=== PATIENT | male | born 1960 | race Caucasian/White ===

== ENCOUNTER 2020-08-03 09:31 | Outpatient (CLI) | payer MEDICARE, SELFPAY ==
[2020-08-03 18:07] LABS: Hemoglobin 16.6 g/dL (14.0-18.0); Mean Corpuscular HGB Conc 34.6 g/dl (32-36); Mean Corpuscular Hemoglobin 31.7 pg (26-34); Mean Corpuscular Volume 91.8 fl (80-100); Mean Platelet Volume 9.5 fl (7.4-10.4); Platelet Count Result 293 k/mm3 (150-375); Red Blood Count 5.23 M/mm3 (4.6-6.20); Red Cell Distribution Width 13.5 % (11.5-14.5); White Blood Count 10.1 K/mm3 (4.5-10.0)
== END 2020-08-03 09:32 | disposition home or self-care (01) ==
LOC: ANHBWCLAB 09:33
PROVIDERS: PCP Family Medicine; Visit Provider Family Medicine
DX: L40.50 Arthropathic psoriasis, unspecified (principal)
CPT/HCPCS: 36415; 85027

== ENCOUNTER 2020-08-18 11:26 | Outpatient (CLI) | payer MEDICARE, SELFPAY ==
[2020-08-18 19:50] LABS: Add Urine Microscopic? NO; Appearance Urine Clear (Clear); Bilirubin Urine Negative (Negative); Blood Urine Negative (Negative); Color Urine Straw (Yellow); Glucose Urine UA Negative (Negative); Ketones Urine Negative (Negative); Leukocyte Esterase Ur Negative LEU/UL (Negative); Nitrate Urine Negative (Negative); Protein Urine Negative (Negative); Specific Grav Ur 1.006 (1.001-1.035); Urobilinogen Urine Negative mg/dL (<2.0)
== END 2020-08-18 11:27 | disposition home or self-care (01) ==
LOC: ANHBWCLAB 11:30
PROVIDERS: PCP Family Medicine; Visit Provider Family Medicine
DX: Z51.81 Encounter for therapeutic drug level monitoring (principal); Z79.899 Other long term (current) drug therapy
CPT/HCPCS: 81003

== ENCOUNTER 2020-11-03 10:49 | Outpatient (CLI) | payer MEDICARE, SELFPAY ==
[2020-11-03 18:37] LABS: Add Urine Microscopic? YES; Appearance Urine Clear (Clear); Bilirubin Urine Negative (Negative); Blood Urine Negative (Negative); Color Urine Straw (Yellow); Glucose Urine UA Negative (Negative); Ketones Urine Negative (Negative); Leukocyte Esterase Ur Trace LEU/UL (NEGATIVE); Nitrate Urine Negative (Negative); Protein Urine Negative (Negative); RBC Urine 0-2 /hpf (0-2); Specific Grav Ur 1.005 (1.001-1.035); Urobilinogen Urine Negative mg/dL (<2.0); WBC Urine 0-3 /hpf (0-3)
[2020-11-03 19:15] LABS: Prostate Specific Antigen 0.5 ng/mL (< OR = 4.0)
== END 2020-11-03 10:50 | disposition home or self-care (01) ==
PROVIDERS: PCP Family Medicine; Visit Provider Family Medicine
DX: Z12.5 Encounter for screening for malignant neoplasm of prostate (principal); R30.0 Dysuria; I10 Essential (primary) hypertension
CPT/HCPCS: 36415; 81001; 84153; 87086; G0103

== ENCOUNTER 2021-02-24 09:14 | Outpatient (CLI) | payer MEDICARE, SELFPAY ==
[2021-02-24 19:05] LABS: Basophils Absolute Auto 0.1 K/mm3 (0.0-0.1); Basophils Percent Auto 0.5 % (0.2-1.2); Eosinophils Absolute Auto 0.3 K/mm3 (0-0.3); Eosinophils Percent Auto 2.6 % (0-4.4); Hematocrit 46.2 % (42.0-52.0); Hemoglobin 14.9 g/dL (14.0-18.0); Immature Granulocyte Absolute 0.05 K/mm3 (0.00-0.031); Immature Granulocyte Percent A 0.4 % (0-0.5); Lymphocytes Absolute Auto 3.57 K/mm3 (0.9-3.2); Lymphocytes Percent Auto 31.9 % (18.3-44.2); Mean Corpuscular HGB Conc 32.3 g/dl (32-36); Mean Corpuscular Hemoglobin 31.6 pg (26-34); Mean Corpuscular Volume 98.1 fl (80-100); Monocytes Percent Auto 9.1 % (2.6-8.5); Neutrophils Absolute Auto 6.2 K/mm3 (1.3-6.7); Neutrophils Percent Auto 55.5 % (45.5-73.1); Platelet Count Result 290 k/mm3 (150-375); Red Blood Count 4.71 M/mm3 (4.6-6.20); Red Cell Distribution Width 13.9 % (11.5-14.5); White Blood Count 11.2 K/mm3 (4.5-10.0)
[2021-02-24 19:07] LABS: Add Urine Microscopic? NO; Appearance Urine Clear (Clear); Bilirubin Urine Negative (Negative); Blood Urine Negative (Negative); Color Urine Straw (Yellow); Glucose Urine UA Negative (Negative); Ketones Urine Negative (Negative); Leukocyte Esterase Ur Negative LEU/UL (Negative); Nitrate Urine Negative (Negative); Protein Urine Negative (Negative); Urobilinogen Urine Negative mg/dL (<2.0)
[2021-02-24 19:08] LABS: Alanine Aminotransferase 49 U/L (4-50); Alkaline Phosphatase 89 U/L (38-126); Anion Gap 7 mmol/L (8-16); Aspartate Amino Transferase 52 U/L (17-59); Bilirubin,Total 0.5 mg/dL (0.2-1.3); Blood Urea Nitrogen 7 mg/dL (9-20); Calcium 9.3 mg/dL (8.4-10.2); Carbon Dioxide 30 mmol/L (22-30); Chloride 93 mmol/L (98-107); Cholesterol 176 mg/dL (0-200); Estimated Glomerular Filt Rate > 60; Glucose 94 mg/dL (65-110); HDL Direct 72 mg/dL; Potassium 4.5 mmol/L (3.4-5.0); Sodium 130 mmol/L (137-145); Triglycerides 149 mg/dL (<150)
[2021-02-24 19:19] LABS: LDL Cholesterol Direct 74 mg/dL
[2021-02-24 19:24] LABS: Vitamin D 25 Hydroxy 77.4 ng/mL
[2021-02-24 19:28] LABS: Specific Grav Ur 1.004 (1.001-1.035)
[2021-02-24 20:14] LABS: Folic Acid 5.6 ng/mL (2.76->20)
== END 2021-02-24 09:15 | disposition home or self-care (01) ==
PROVIDERS: PCP Family Medicine; Visit Provider Family Medicine
DX: R79.89 Other specified abnormal findings of blood chemistry (principal); D72.829 Elevated white blood cell count, unspecified; I10 Essential (primary) hypertension; F17.200 Nicotine dependence, unspecified, uncomplicated; L40.50 Arthropathic psoriasis, unspecified; R30.0 Dysuria; Z79.899 Other long term (current) drug therapy; D75.1 Secondary polycythemia; Z12.5 Encounter for screening for malignant neoplasm of prostate
CPT/HCPCS: 36415; 80053; 80061; 81003; 82306; 82607; 82746; 84443; 85025

== ENCOUNTER 2021-06-24 11:28 | Outpatient (CLI) | payer MEDICARE, SELFPAY ==
[2021-06-24 20:19] LABS: Basophils Absolute Auto 0.1 K/mm3 (0.0-0.1); Basophils Percent Auto 0.6 % (0.2-1.2); Eosinophils Absolute Auto 0.2 K/mm3 (0-0.3); Eosinophils Percent Auto 1.9 % (0-4.4); Hematocrit 46.9 % (42.0-52.0); Hemoglobin 15.9 g/dL (14.0-18.0); Immature Granulocyte Absolute 0.05 K/mm3 (0.00-0.031); Immature Granulocyte Percent A 0.5 % (0-0.5); Lymphocytes Absolute Auto 2.98 K/mm3 (0.9-3.2); Lymphocytes Percent Auto 31.3 % (18.3-44.2); Mean Corpuscular HGB Conc 33.9 g/dl (32-36); Mean Corpuscular Hemoglobin 33.3 pg (26-34); Mean Corpuscular Volume 98.3 fl (80-100); Monocytes Absolute Auto 0.8 K/mm3 (0.1-0.6); Monocytes Percent Auto 8.2 % (2.6-8.5); Neutrophils Absolute Auto 5.5 K/mm3 (1.3-6.7); Neutrophils Percent Auto 57.5 % (45.5-73.1); Platelet Count Result 345 k/mm3 (150-375); Red Blood Count 4.77 M/mm3 (4.6-6.20); Red Cell Distribution Width 12.8 % (11.5-14.5); White Blood Count 9.5 K/mm3 (4.5-10.0)
[2021-06-24 20:20] LABS: Anion Gap 9 mmol/L (8-16); Blood Urea Nitrogen 5 mg/dL (9-20); Calcium 9.1 mg/dL (8.4-10.2); Carbon Dioxide 27 mmol/L (22-30); Chloride 94 mmol/L (98-107); Estimated Glomerular Filt Rate > 60; Glucose 92 mg/dL (65-110); Potassium 4.4 mmol/L (3.4-5.0); Sodium 130 mmol/L (137-145)
[2021-06-24 20:51] LABS: Prostate Specific Antigen 0.5 ng/mL (< OR = 4.0)
[2021-06-24 22:35] LABS: Free T4 Free Thyroxine Reflex 1.32 ng/dL (0.78-2.19)
[2021-06-25 07:23] LABS: Total Triiodothyronine (T3) 1.21 NG/ML (0.97-1.69)
[2021-06-29 02:40] LABS: Thyroid Peroxidase Antibodies <1 IU/mL (<9)
== END 2021-06-24 11:29 | disposition home or self-care (01) ==
PROVIDERS: PCP Family Medicine; Visit Provider Family Medicine
DX: Z12.5 Encounter for screening for malignant neoplasm of prostate (principal); R79.89 Other specified abnormal findings of blood chemistry; E87.1 Hypo-osmolality and hyponatremia; D72.829 Elevated white blood cell count, unspecified; Z00.00 Encounter for general adult medical examination without abnormal findings
CPT/HCPCS: 36415; 80048; 84153; 84439; 84443; 84480; 85025; 86376; G0103

== ENCOUNTER 2021-07-01 08:41 | Outpatient (CLI) | payer MEDICARE, SELFPAY ==
[2021-07-01 19:17] LABS: Sodium Urine Random < 5 meq/L
[2021-07-01 21:17] LABS: Cortisol Baseline 6.87 ug/dL
[2021-07-04 07:19] LABS: Osmolality, Urine 127 mOsm/kg (50-1200)
== END 2021-07-01 08:42 | disposition home or self-care (01) ==
PROVIDERS: PCP Family Medicine; Visit Provider Family Medicine
DX: E87.1 Hypo-osmolality and hyponatremia (principal)
CPT/HCPCS: 36415; 82533; 83930; 83935; 84300

== ENCOUNTER 2021-10-11 09:37 | Outpatient (CLI) | payer MEDICARE, SELFPAY ==
[2021-10-11 19:10] LABS: Anion Gap 5 mmol/L (8-16); Blood Urea Nitrogen 5 mg/dL (9-20); Calcium 8.8 mg/dL (8.4-10.2); Carbon Dioxide 32 mmol/L (22-30); Chloride 96 mmol/L (98-107); Estimated Glomerular Filt Rate > 60; Glucose 85 mg/dL (65-110); Potassium 4.8 mmol/L (3.4-5.0); Sodium 133 mmol/L (137-145)
== END 2021-10-11 09:38 | disposition home or self-care (01) ==
PROVIDERS: PCP Family Medicine; Visit Provider Family Medicine
DX: E87.1 Hypo-osmolality and hyponatremia (principal)
CPT/HCPCS: 36415; 80048

== ENCOUNTER 2021-10-26 11:27 | Outpatient (CLI) | payer MEDICARE, SELFPAY ==
[2021-10-26 11:59] LABS: Alanine Aminotransferase 17 U/L (4-50); Aspartate Amino Transferase 29 U/L (17-59)
== END 2021-10-26 11:28 | disposition home or self-care (01) ==
PROVIDERS: PCP Family Medicine; Visit Provider Podiatrist Foot & Ankle Surgery
DX: B35.1 Tinea unguium (principal)
CPT/HCPCS: 36415; 84450; 84460

== ENCOUNTER 2021-11-16 11:46 | Outpatient (CLI) | payer MEDICARE, SELFPAY ==
--- NOTE | ~2021-11-16 | XR_ITS ---
EXAMINATION:XR cervical spine 4-5V DATE: 11/16/2021 12:35 INDICATION: Neck pain TECHNIQUE: AP, lateral, lateral swimmers and odontoid views of the cervical spine are provided. COMPARISON: 08/14/2015 FINDINGS: There are 2 mm of retrolisthesis of C5 on C6. There is mild loss of intervertebral disc spa ce height at C5-6 and moderate loss of intervertebral disc space height at C6-7. The odontoid is inta ct. No fracture is identified. Vertebral body heights are maintained. Prevertebral soft tissues are n ormal. IMPRESSION: 1. Moderate cervical spondylosis with slight worsening. Reviewed, dictated and finalized at location F.
--- NOTE | ~2021-11-16 | XR_ITS ---
EXAMINATION: XR shoulder RT min 2V DATE: 11/16/2021 12:34 INDICATION: Right shoulder pain TECHNIQUE: AP internally and externally rotated, AP oblique externally rotated and transscapular Y vi ews of the right shoulder were obtained. COMPARISON: None FINDINGS: Normal alignment. No fracture. Mild glenohumeral and acromioclavicular osteoarthritis. Soft tissues are unremarkable. Visualized portion of the right lung is clear. IMPRESSION: Mild right glenohumeral and acromioclavicular osteoarthritis. Reviewed, dictated and finalized at location B.
[2021-11-16 19:10] LABS: Hematocrit 49.6 % (42.0-52.0); Hemoglobin 16.6 g/dL (14.0-18.0); Mean Corpuscular HGB Conc 33.5 g/dl (32-36); Mean Corpuscular Hemoglobin 31.9 pg (26-34); Mean Corpuscular Volume 95.4 fl (80-100); Platelet Count Result 365 k/mm3 (150-375); Red Cell Distribution Width 13.1 % (11.5-14.5); White Blood Count 11.7 K/mm3 (4.5-10.0)
[2021-11-16 19:17] LABS: Iron 137 ug/dL (49-181)
[2021-11-16 19:19] LABS: Alanine Aminotransferase 24 U/L (4-50); Albumin Level 4.4 g/dL (3.5-5.1); Alkaline Phosphatase 90 U/L (38-126); Anion Gap 5 mmol/L (8-16); Aspartate Amino Transferase 32 U/L (17-59); Bilirubin,Total 0.4 mg/dL (0.2-1.3); Blood Urea Nitrogen 7 mg/dL (9-20); Calcium 9.4 mg/dL (8.4-10.2); Carbon Dioxide 34 mmol/L (22-30); Chloride 90 mmol/L (98-107); Estimated Glomerular Filt Rate > 60; Glucose 85 mg/dL (65-110); Potassium 4.6 mmol/L (3.4-5.0); Sodium 129 mmol/L (137-145)
[2021-11-16 19:26] LABS: Percent Iron Saturation 41 % (20-50)
[2021-11-16 19:37] LABS: Vitamin D 25 Hydroxy 72.1 ng/mL
[2021-11-19 08:29] LABS: ANA Cascade Screen Negative (Negative)
== END 2021-11-16 11:47 | disposition home or self-care (01) ==
PROVIDERS: PCP Family Medicine; Visit Provider Family Medicine
DX: M47.812 Spondylosis without myelopathy or radiculopathy, cervical region (principal); R79.89 Other specified abnormal findings of blood chemistry; G25.81 Restless legs syndrome; M25.511 Pain in right shoulder; E55.9 Vitamin D deficiency, unspecified; M19.011 Primary osteoarthritis, right shoulder
CPT/HCPCS: 36415; 72050; 73030; 80053; 82306; 82607; 83540; 83550; 85027; 86038

== ENCOUNTER 2022-02-08 08:26 | Outpatient (CLI) | payer MEDICARE, SELFPAY ==
--- NOTE | ~2022-02-08 | XR_ITS ---
XR wrist RT min 3V DATE: 02/08/2022 08:46 INDICATION: Wrist pain TECHNIQUE: 4 views COMPARISON: None FINDINGS: No fracture or dislocation, periosteal reaction or bone destruction. No erosive change or c hondrocalcinosis. Joint spaces are relatively well preserved. IMPRESSION: No significant abnormality Reviewed, dictated and finalized at location B. IMPRESSION: No significant abnormality
--- NOTE | ~2022-02-08 | XR_ITS ---
XR elbow RT min 3V DATE: 02/08/2022 08:46 INDICATION: Pain TECHNIQUE: 4 views COMPARISON: None FINDINGS: No fracture or dislocation or joint effusion. No periosteal reaction or bone destruction. IMPRESSION: No significant abnormality Reviewed, dictated and finalized at location B. IMPRESSION: No significant abnormality
[2022-02-08 18:46] LABS: Anion Gap 5 mmol/L (8-16); Blood Urea Nitrogen 4 mg/dL (9-20); Calcium 9.1 mg/dL (8.4-10.2); Carbon Dioxide 33 mmol/L (22-30); Chloride 98 mmol/L (98-107); Estimated Glomerular Filt Rate > 60; Glucose 95 mg/dL (65-110); Potassium 4.1 mmol/L (3.4-5.0); Sodium 136 mmol/L (137-145)
== END 2022-02-08 08:27 | disposition home or self-care (01) ==
PROVIDERS: PCP Family Medicine; Visit Provider Family Medicine
DX: E87.1 Hypo-osmolality and hyponatremia (principal); M25.539 Pain in unspecified wrist; M25.529 Pain in unspecified elbow
CPT/HCPCS: 36415; 73080; 73110; 80048

== ENCOUNTER 2022-02-23 11:03 | Outpatient (CLI) | payer MEDICARE, SELFPAY ==
[2022-02-23 20:53] LABS: Appearance Urine Clear (Clear); Bilirubin Urine Negative (Negative); Glucose Urine UA Negative (Negative); Ketones Urine Negative (Negative); Leukocyte Esterase Ur Negative LEU/UL (NEGATIVE); Nitrate Urine Negative (Negative); Protein Urine Negative (Negative); Urobilinogen Urine 0.2 mg/dL (<2.0)
[2022-02-23 21:02] LABS: Add Urine Microscopic? YES; Blood Urine Trace-Intact (Negative); Color Urine Light Yellow (Yellow)
[2022-02-23 21:06] LABS: Bacteria Urine Trace /hpf; Squamous Epithelial Cell Urine Rare /hpf (Few); WBC Urine 0-3 /hpf (0-3)
[2022-02-23 21:48] LABS: Cholesterol 184 mg/dL (0-200); HDL Direct 52 mg/dL; Triglycerides 120 mg/dL (<150)
[2022-02-23 21:59] LABS: LDL Cholesterol Direct 89 mg/dL
== END 2022-02-23 11:04 | disposition home or self-care (01) ==
PROVIDERS: PCP Family Medicine; Visit Provider Family Medicine
DX: E78.5 Hyperlipidemia, unspecified (principal); N50.89 Other specified disorders of the male genital organs; N50.819 Testicular pain, unspecified
CPT/HCPCS: 36415; 80061; 81001

== ENCOUNTER 2022-06-14 08:36 | Outpatient (CLI) | payer MEDICARE, SELFPAY ==
[2022-06-14 19:41] LABS: Appearance Urine Clear (Clear); Basophils Absolute Auto 0.1 K/mm3 (0.0-0.1); Basophils Percent Auto 0.8 % (0.2-1.2); Bilirubin Urine Negative (Negative); Blood Urine Negative (Negative); Color Urine Yellow (Yellow); Eosinophils Absolute Auto 0.2 K/mm3 (0-0.3); Glucose Urine UA Negative (Negative); Hematocrit 51.7 % (42.0-52.0); Hemoglobin 16.7 g/dL (14.0-18.0); Immature Granulocyte Absolute 0.06 K/mm3 (0.00-0.031); Immature Granulocyte Percent A 0.5 % (0-0.5); Ketones Urine Negative (Negative); Leukocyte Esterase Ur Negative LEU/UL (NEGATIVE); Lymphocytes Absolute Auto 4.47 K/mm3 (0.9-3.2); Lymphocytes Percent Auto 37.4 % (18.3-44.2); Mean Corpuscular HGB Conc 32.3 g/dl (32-36); Mean Corpuscular Hemoglobin 30.6 pg (26-34); Mean Corpuscular Volume 94.7 fl (80-100); Mean Platelet Volume 9.4 fl (7.4-10.4); Monocytes Absolute Auto 0.9 K/mm3 (0.1-0.6); Monocytes Percent Auto 7.8 % (2.6-8.5); Neutrophils Absolute Auto 6.2 K/mm3 (1.3-6.7); Neutrophils Percent Auto 51.5 % (45.5-73.1); Nitrate Urine Negative (Negative); Platelet Count Result 396 k/mm3 (150-375); Protein Urine Negative (Negative); Red Blood Count 5.46 M/mm3 (4.6-6.20); Red Cell Distribution Width 14.1 % (11.5-14.5); Specific Grav Ur <= 1.005 (1.001-1.035); Urobilinogen Urine 0.2 mg/dL (<2.0); White Blood Count 11.9 K/mm3 (4.5-10.0)
[2022-06-14 19:48] LABS: RBC Urine 0-2 /hpf (0-2); Squamous Epithelial Cell Urine Rare /hpf (Few); WBC Urine 0-3 /hpf (0-3)
[2022-06-14 19:54] LABS: Add Urine Microscopic? NO
[2022-06-14 20:42] LABS: Prostate Specific Antigen 0.4 ng/mL (< OR = 4.0)
[2022-06-14 20:56] LABS: Anion Gap 15 mmol/L (8-16); Blood Urea Nitrogen 7 mg/dL (9-20); Calcium 8.9 mg/dL (8.4-10.2); Carbon Dioxide 27 mmol/L (22-30); Chloride 94 mmol/L (98-107); Estimated Glomerular Filt Rate > 60; Glucose 83 mg/dL (65-110); Potassium 3.8 mmol/L (3.4-5.0); Sodium 136 mmol/L (137-145)
== END 2022-06-14 08:37 | disposition home or self-care (01) ==
LOC: ANHBWCLAB 08:37
PROVIDERS: PCP Family Medicine; Visit Provider Family Medicine
DX: D72.829 Elevated white blood cell count, unspecified (principal); E87.1 Hypo-osmolality and hyponatremia; E66.01 Morbid (severe) obesity due to excess calories; N50.89 Other specified disorders of the male genital organs; N50.819 Testicular pain, unspecified; Z12.5 Encounter for screening for malignant neoplasm of prostate
CPT/HCPCS: 36415; 80048; 81003; 84153; 85025; G0103

== ENCOUNTER 2022-09-01 09:11 | Outpatient (CLI) | payer MEDICARE, SELFPAY ==
[2022-09-01 19:20] LABS: Free T4 Free Thyroxine 0.97 ng/mL (0.78-2.19)
[2022-09-01 20:11] LABS: Basophils Absolute Auto 0.1 K/mm3 (0.0-0.1); Basophils Percent Auto 0.5 % (0.2-1.2); Eosinophils Absolute Auto 0.3 K/mm3 (0-0.3); Eosinophils Percent Auto 3.3 % (0-4.4); Hematocrit 50.7 % (42.0-52.0); Hemoglobin 16.9 g/dL (14.0-18.0); Immature Granulocyte Absolute 0.03 K/mm3 (0.00-0.031); Immature Granulocyte Percent A 0.3 % (0-0.5); Lymphocytes Absolute Auto 2.58 K/mm3 (0.9-3.2); Lymphocytes Percent Auto 25.6 % (18.3-44.2); Mean Corpuscular HGB Conc 33.3 g/dl (32-36); Mean Corpuscular Hemoglobin 30.7 pg (26-34); Mean Platelet Volume 9.7 fl (7.4-10.4); Monocytes Absolute Auto 0.7 K/mm3 (0.1-0.6); Neutrophils Absolute Auto 6.4 K/mm3 (1.3-6.7); Neutrophils Percent Auto 63.3 % (45.5-73.1); Platelet Count Result 350 k/mm3 (150-375); Red Blood Count 5.51 M/mm3 (4.6-6.20); Red Cell Distribution Width 13.7 % (11.5-14.5); White Blood Count 10.1 K/mm3 (4.5-10.0)
[2022-09-01 21:54] LABS: Vitamin D 25 Hydroxy 53.9 ng/mL
[2022-09-05 15:53] LABS: Triiodothyronine T3 Free 2.9 pg/mL (2.3-4.2)
== END 2022-09-01 09:12 | disposition home or self-care (01) ==
PROVIDERS: PCP Family Medicine; Visit Provider Family Medicine
DX: R79.89 Other specified abnormal findings of blood chemistry (principal); D72.829 Elevated white blood cell count, unspecified; R63.5 Abnormal weight gain; E55.9 Vitamin D deficiency, unspecified
CPT/HCPCS: 36415; 82306; 84439; 84443; 84481; 85025

== ENCOUNTER 2022-11-16 09:43 | Outpatient (CLI) | payer MEDICARE, SELFPAY ==
[2022-11-16 18:51] LABS: Basophils Absolute Auto 0.1 K/mm3 (0.0-0.1); Basophils Percent Auto 0.4 % (0.2-1.2); Eosinophils Absolute Auto 0.3 K/mm3 (0-0.3); Eosinophils Percent Auto 1.8 % (0-4.4); Hematocrit 51.4 % (42.0-52.0); Hemoglobin 17.1 g/dL (14.0-18.0); Immature Granulocyte Absolute 0.07 K/mm3 (0.00-0.031); Immature Granulocyte Percent A 0.5 % (0-0.5); Lymphocytes Absolute Auto 2.93 K/mm3 (0.9-3.2); Lymphocytes Percent Auto 20.6 % (18.3-44.2); Mean Corpuscular HGB Conc 33.3 g/dl (32-36); Mean Corpuscular Hemoglobin 30.8 pg (26-34); Mean Corpuscular Volume 92.6 fl (80-100); Mean Platelet Volume 9.7 fl (7.4-10.4); Monocytes Absolute Auto 1.4 K/mm3 (0.1-0.6); Monocytes Percent Auto 9.7 % (2.6-8.5); Neutrophils Absolute Auto 9.5 K/mm3 (1.3-6.7); Platelet Count Result 397 k/mm3 (150-375); Red Blood Count 5.55 M/mm3 (4.6-6.20); Red Cell Distribution Width 14.7 % (11.5-14.5); White Blood Count 14.2 K/mm3 (4.5-10.0)
[2022-11-16 19:41] LABS: Free T4 Free Thyroxine 1.32 ng/mL (0.78-2.19)
[2022-11-16 19:52] LABS: Hemoglobin A1C 5.4 % (<5.7)
[2022-11-16 19:59] LABS: Alanine Aminotransferase 23 U/L (6-50); Albumin Level 4.3 g/dL (3.5-5.1); Alkaline Phosphatase 81 U/L (38-126); Aspartate Amino Transferase 48 U/L (17-59); Bilirubin,Total 0.6 mg/dL (0.2-1.3); Blood Urea Nitrogen 7 mg/dL (9-20); Calcium 10.5 mg/dL (8.4-10.2); Carbon Dioxide > 40 mmol/L (22-30); Chloride 97 mmol/L (98-107); Cholesterol 200 mg/dL (0-200); Estimated Glomerular Filt Rate > 60; Glucose 78 mg/dL (65-110); HDL Direct 39 mg/dL; Potassium 4.6 mmol/L (3.4-5.0); Sodium 140 mmol/L (137-145); Triglycerides 183 mg/dL (<150)
[2022-11-16 20:02] LABS: Prostate Specific Antigen 0.4 ng/mL (< OR = 4.0)
[2022-11-16 20:13] LABS: LDL Cholesterol Direct 120 mg/dL
== END 2022-11-16 09:44 | disposition home or self-care (01) ==
PROVIDERS: PCP Family Medicine; Visit Provider Nurse Practitioner Family
DX: Z51.81 Encounter for therapeutic drug level monitoring (principal); Z79.899 Other long term (current) drug therapy; E03.9 Hypothyroidism, unspecified; N40.0 Benign prostatic hyperplasia without lower urinary tract symptoms; Z12.5 Encounter for screening for malignant neoplasm of prostate
CPT/HCPCS: 36415; 80053; 80061; 83036; 84153; 84439; 84443; 85025; G0103

== ENCOUNTER 2023-03-10 08:58 | Outpatient (CLI) | payer MEDICARE, SELFPAY ==
[2023-03-16 03:18] LABS: ANA Cascade Screen Negative (Negative)
== END 2023-03-10 08:59 | disposition home or self-care (01) ==
PROVIDERS: PCP Nurse Practitioner Adult Health; Visit Provider Nurse Practitioner Adult Health
DX: L40.50 Arthropathic psoriasis, unspecified (principal)
CPT/HCPCS: 36415; 86038

== ENCOUNTER 2023-03-20 09:01 | Outpatient (CLI) | payer MEDICARE, SELFPAY ==
[2023-03-20 19:49] LABS: Alanine Aminotransferase 30 U/L (6-50); Aspartate Amino Transferase 98 U/L (17-59)
== END 2023-03-20 09:02 | disposition home or self-care (01) ==
PROVIDERS: PCP Nurse Practitioner Adult Health; Visit Provider Podiatrist Foot & Ankle Surgery
DX: B35.1 Tinea unguium (principal)
CPT/HCPCS: 36415; 84450; 84460

== ENCOUNTER 2023-06-08 10:03 | Outpatient (CLI) | payer MEDICARE, MEDICAID, SELFPAY ==
[2023-06-08 19:08] LABS: Anion Gap 10 mmol/L (8-16); Blood Urea Nitrogen 5 mg/dL (9-20); Calcium 9.4 mg/dL (8.4-10.2); Carbon Dioxide 30 mmol/L (22-30); Chloride 94 mmol/L (98-107); Cholesterol 161 mg/dL (0-200); Estimated Glomerular Filt Rate > 60; Glucose 87 mg/dL (65-110); HDL Direct 41 mg/dL; Potassium 3.8 mmol/L (3.4-5.0); Sodium 134 mmol/L (137-145); Triglycerides 168 mg/dL (<150)
[2023-06-08 19:19] LABS: LDL Cholesterol Direct 84 mg/dL
[2023-06-08 19:30] LABS: Basophils Absolute Auto 0.1 K/mm3 (0.0-0.1); Basophils Percent Auto 0.5 % (0.2-1.2); Eosinophils Absolute Auto 0.2 K/mm3 (0-0.3); Eosinophils Percent Auto 1.7 % (0-4.4); Hematocrit 47.4 % (42.0-52.0); Hemoglobin 15.3 g/dL (14.0-18.0); Immature Granulocyte Absolute 0.06 K/mm3 (0.00-0.031); Immature Granulocyte Percent A 0.5 % (0-0.5); Lymphocytes Absolute Auto 3.47 K/mm3 (0.9-3.2); Lymphocytes Percent Auto 26.3 % (18.3-44.2); Mean Corpuscular HGB Conc 32.3 g/dl (32-36); Mean Corpuscular Hemoglobin 29.9 pg (26-34); Mean Corpuscular Volume 92.8 fl (80-100); Mean Platelet Volume 9.8 fl (7.4-10.4); Monocytes Percent Auto 7.4 % (2.6-8.5); Neutrophils Absolute Auto 8.4 K/mm3 (1.3-6.7); Neutrophils Percent Auto 63.6 % (45.5-73.1); Platelet Count Result 436 k/mm3 (150-375); Red Blood Count 5.11 M/mm3 (4.6-6.20); Red Cell Distribution Width 13.2 % (11.5-14.5); White Blood Count 13.2 K/mm3 (4.5-10.0)
== END 2023-06-08 10:04 | disposition home or self-care (01) ==
PROVIDERS: PCP Nurse Practitioner Adult Health; Visit Provider Nurse Practitioner Adult Health
DX: E03.9 Hypothyroidism, unspecified (principal); I10 Essential (primary) hypertension
CPT/HCPCS: 36415; 80048; 80061; 84443; 85025

== ENCOUNTER 2023-06-23 08:37 | Outpatient (CLI) | payer MEDICARE, MEDICAID, SELFPAY ==
[2023-06-23 19:24] LABS: Hematocrit 46.7 % (42.0-52.0); Hemoglobin 15.5 g/dL (14.0-18.0); Mean Corpuscular HGB Conc 33.2 g/dl (32-36); Mean Corpuscular Hemoglobin 30.2 pg (26-34); Mean Corpuscular Volume 90.9 fl (80-100); Mean Platelet Volume 9.7 fl (7.4-10.4); Platelet Count Result 435 k/mm3 (150-375); Red Blood Count 5.14 M/mm3 (4.6-6.20); Red Cell Distribution Width 13.1 % (11.5-14.5); White Blood Count 13.7 K/mm3 (4.5-10.0)
[2023-06-23 19:36] LABS: Appearance Urine Clear (Clear); Bilirubin Urine Negative (Negative); Blood Urine Negative (Negative); Color Urine Yellow (Yellow); Glucose Urine UA Negative (Negative); Ketones Urine Negative (Negative); Leukocyte Esterase Ur Negative LEU/UL (NEGATIVE); Nitrate Urine Negative (Negative); Protein Urine Negative (Negative); Specific Grav Ur 1.009 (1.001-1.035); Urobilinogen Urine 0.2 mg/dL (<2.0); pH Urine 6.5 (5.0-9.0)
[2023-06-23 19:44] LABS: Add Urine Microscopic? NO
== END 2023-06-23 08:38 | disposition home or self-care (01) ==
PROVIDERS: PCP Nurse Practitioner Adult Health; Visit Provider Nurse Practitioner Adult Health
DX: D72.829 Elevated white blood cell count, unspecified (principal); R39.9 Unspecified symptoms and signs involving the genitourinary system
CPT/HCPCS: 36415; 81003; 85027

== ENCOUNTER 2023-06-28 10:09 | Outpatient (CLI) | payer MEDICARE, MEDICAID, SELFPAY ==
[2023-06-28 19:32] LABS: Anion Gap 10 mmol/L (8-16); Blood Urea Nitrogen 7 mg/dL (9-20); Calcium 9.1 mg/dL (8.4-10.2); Carbon Dioxide 26 mmol/L (22-30); Chloride 96 mmol/L (98-107); Estimated Glomerular Filt Rate > 60; Glucose 82 mg/dL (65-110); Potassium 4.2 mmol/L (3.4-5.0); Sodium 132 mmol/L (137-145)
== END 2023-06-28 10:10 | disposition home or self-care (01) ==
PROVIDERS: PCP Nurse Practitioner Adult Health
DX: L40.0 Psoriasis vulgaris (principal)
CPT/HCPCS: 36415; 80048

== ENCOUNTER 2023-07-20 11:28 | Outpatient (CLI) | payer MEDICARE, MEDICAID, SELFPAY ==
[2023-07-20 19:56] LABS: Trichomonas Vag PCR NOT DETECTED (NOT DETECTE)
[2023-07-20 20:19] LABS: Chlamydia trachomatis NOT DETECTED (NOT DETECTE); Neisseria gonorrhoeae PCR NOT DETECTED (NOT DETECTE)
[2023-07-21 12:32] LABS: Rapid Plasma Reagin Non-Reactive (NonReactive)
[2023-07-24 23:39] LABS: Herpes Simplex Type 1 DNA PCR NOT DETECTED; Herpes Simplex Type 2 DNA PCR NOT DETECTED
== END 2023-07-20 11:29 | disposition home or self-care (01) ==
LOC: ANHBWCLAB 11:30
PROVIDERS: PCP Nurse Practitioner Adult Health; Visit Provider Nurse Practitioner Adult Health
DX: N48.9 Disorder of penis, unspecified (principal); Z72.51 High risk heterosexual behavior
CPT/HCPCS: 36415; 86592; 87491; 87529; 87591; 87661

== ENCOUNTER 2023-08-09 11:12 | Outpatient (CLI) | payer MEDICARE, MEDICAID, SELFPAY ==
[2023-08-09 11:37] LABS: Basophils Absolute Auto 0.1 K/mm3 (0.0-0.1); Basophils Percent Auto 0.6 % (0.2-1.2); Eosinophils Absolute Auto 0.4 K/mm3 (0-0.3); Eosinophils Percent Auto 2.7 % (0-4.4); Hemoglobin 15.5 g/dL (14.0-18.0); Immature Granulocyte Absolute 0.05 K/mm3 (0.00-0.031); Immature Granulocyte Percent A 0.4 % (0-0.5); Lymphocytes Absolute Auto 3.81 K/mm3 (0.9-3.2); Lymphocytes Percent Auto 27.4 % (18.3-44.2); Mean Corpuscular HGB Conc 35.2 g/dl (32-36); Mean Corpuscular Hemoglobin 30.8 pg (26-34); Mean Corpuscular Volume 87.5 fl (80-100); Mean Platelet Volume 8.9 fl (7.4-10.4); Monocytes Absolute Auto 0.9 K/mm3 (0.1-0.6); Monocytes Percent Auto 6.4 % (2.6-8.5); Neutrophils Absolute Auto 8.7 K/mm3 (1.3-6.7); Neutrophils Percent Auto 62.5 % (45.5-73.1); Platelet Count Result 383 k/mm3 (150-375); Red Blood Count 5.03 M/mm3 (4.6-6.20); Red Cell Distribution Width 12.6 % (11.5-14.5); White Blood Count 13.9 K/mm3 (4.5-10.0)
[2023-08-09 16:48] LABS: Iron 72 ug/dL (49-181)
[2023-08-09 16:49] LABS: Alanine Aminotransferase 24 U/L (6-50); Albumin Level 4.3 g/dL (3.5-5.1); Alkaline Phosphatase 100 U/L (38-126); Anion Gap 8 mmol/L (8-16); Aspartate Amino Transferase 30 U/L (17-59); Bilirubin,Total 0.6 mg/dL (0.2-1.3); Blood Urea Nitrogen 6 mg/dL (9-20); CRP 0.7 mg/dL (<1.0); Calcium 9.3 mg/dL (8.4-10.2); Carbon Dioxide 27 mmol/L (22-30); Chloride 97 mmol/L (98-107); Estimated Glomerular Filt Rate > 60; Glucose 83 mg/dL (65-110); Potassium 4.1 mmol/L (3.4-5.0); Sodium 132 mmol/L (137-145)
[2023-08-09 17:03] LABS: Erythrocyte Sedimentation Rate 7 mm/hr (0-20)
[2023-08-09 17:07] LABS: Percent Iron Saturation 23 % (20-50)
[2023-08-18 15:34] LABS: Soluble Transferrin Receptor 0.81 mg/L (0.76-1.76)
== END 2023-08-09 11:13 | disposition home or self-care (01) ==
LOC: ANHLAB 11:16
PROVIDERS: Nurse Practitioner Family; PCP Nurse Practitioner Adult Health; Visit Provider Internal Medicine Hematology & Oncology
DX: D72.829 Elevated white blood cell count, unspecified (principal); D50.9 Iron deficiency anemia, unspecified
CPT/HCPCS: 36415; 80053; 83540; 83550; 84238; 85025; 85652; 86140; 88184

== ENCOUNTER 2023-12-07 11:16 | Outpatient (CLI) | payer MEDICARE, MEDICAID, SELFPAY ==
[2023-12-07 19:05] LABS: Basophils Absolute Auto 0.1 K/mm3 (0.0-0.1); Basophils Percent Auto 0.5 % (0.2-1.2); Eosinophils Absolute Auto 0.2 K/mm3 (0-0.3); Eosinophils Percent Auto 1.7 % (0-4.4); Hematocrit 47.9 % (42.0-52.0); Hemoglobin 15.8 g/dL (14.0-18.0); Immature Granulocyte Absolute 0.06 K/mm3 (0.00-0.031); Immature Granulocyte Percent A 0.5 % (0-0.5); Lymphocytes Absolute Auto 3.73 K/mm3 (0.9-3.2); Lymphocytes Percent Auto 28.1 % (18.3-44.2); Mean Corpuscular Hemoglobin 29.8 pg (26-34); Mean Corpuscular Volume 90.2 fl (80-100); Mean Platelet Volume 9.9 fl (7.4-10.4); Monocytes Absolute Auto 0.9 K/mm3 (0.1-0.6); Monocytes Percent Auto 6.6 % (2.6-8.5); Neutrophils Absolute Auto 8.3 K/mm3 (1.3-6.7); Neutrophils Percent Auto 62.6 % (45.5-73.1); Platelet Count Result 382 k/mm3 (150-375); Red Blood Count 5.31 M/mm3 (4.6-6.20); Red Cell Distribution Width 12.9 % (11.5-14.5); White Blood Count 13.3 K/mm3 (4.5-10.0)
[2023-12-07 19:30] LABS: Alanine Aminotransferase 24 U/L (6-50); Albumin Level 4.5 g/dL (3.5-5.1); Alkaline Phosphatase 100 U/L (38-126); Anion Gap 9 mmol/L (4-12); Aspartate Amino Transferase 64 U/L (17-59); Bilirubin,Total 0.6 mg/dL (0.2-1.3); Blood Urea Nitrogen 8 mg/dL (9-20); Calcium 8.9 mg/dL (8.4-10.2); Carbon Dioxide 26 mmol/L (22-30); Chloride 95 mmol/L (98-107); Cholesterol 160 mg/dL (0-200); Estimated Glomerular Filt Rate > 60; Glucose 89 mg/dL (65-110); HDL Direct 39 mg/dL; Potassium 3.6 mmol/L (3.4-5.0); Sodium 130 mmol/L (137-145); Triglycerides 210 mg/dL (<150)
[2023-12-07 19:41] LABS: LDL Cholesterol Direct 91 mg/dL
[2023-12-07 19:43] LABS: Prostate Specific Antigen 0.3 ng/mL (< OR = 4.0)
[2023-12-07 19:57] LABS: Vitamin D 25 Hydroxy 60.9 ng/mL
[2023-12-07 20:35] LABS: Free T4 Free Thyroxine Reflex 1.59 ng/dL (0.78-2.19)
[2023-12-07 21:40] LABS: Total Triiodothyronine (T3) 1.33 NG/ML (0.97-1.69)
== END 2023-12-07 11:17 | disposition home or self-care (01) ==
PROVIDERS: PCP Nurse Practitioner Adult Health; Visit Provider Nurse Practitioner Adult Health
DX: Z12.5 Encounter for screening for malignant neoplasm of prostate (principal); I10 Essential (primary) hypertension; R79.89 Other specified abnormal findings of blood chemistry; Z79.899 Other long term (current) drug therapy
CPT/HCPCS: 36415; 80053; 80061; 82306; 84153; 84439; 84443; 84480; 85025; G0103

== ENCOUNTER 2024-04-02 14:47 | Outpatient (CLI) | payer MEDICARE, MEDICAID, SELFPAY ==
[2024-04-02 18:45] LABS: Hematocrit 47.8 % (42.0-52.0); Hemoglobin 15.6 g/dL (14.0-18.0); Mean Corpuscular HGB Conc 32.6 g/dl (32-36); Mean Corpuscular Hemoglobin 30.1 pg (26-34); Mean Corpuscular Volume 92.1 fl (80-100); Mean Platelet Volume 9.8 fl (7.4-10.4); Platelet Count Result 376 k/mm3 (150-375); Red Blood Count 5.19 M/mm3 (4.6-6.20); Red Cell Distribution Width 13.2 % (11.5-14.5); White Blood Count 14.2 K/mm3 (4.5-10.0)
[2024-04-04 13:34] LABS: NIL 0.02 IU/mL; Quantiferon TB Plus, 1T NEGATIVE (NEGATIVE)
== END 2024-04-02 14:48 | disposition home or self-care (01) ==
LOC: ANHBWCLAB 14:49
PROVIDERS: PCP Nurse Practitioner Adult Health; Visit Provider Dermatology
DX: L40.0 Psoriasis vulgaris (principal)
CPT/HCPCS: 36415; 85027; 86480

== ENCOUNTER 2024-06-05 10:51 | Outpatient (CLI) | payer MEDICARE, MEDICAID, SELFPAY ==
[2024-06-07 17:53] LABS: Amphetamines NEGATIVE ng/mL (<500); Barbiturates NEGATIVE ng/mL (<300); Benzodiazepines NEGATIVE ng/mL (<100); Cocaine Metabolite NEGATIVE ng/mL (<150); Codeine NEGATIVE ng/mL (<50); Hydrocodone 476 ng/mL (<50); Hydromorphone 69 ng/mL (<50); Marijuana Metabolite NEGATIVE ng/mL (<20); Methadone Metabolite NEGATIVE ng/mL (<100); Morphine NEGATIVE ng/mL (<50); Norhydrocodone 147 ng/mL (<50); Opiates POSITIVE ng/mL (<100); Oxidant NEGATIVE mcg/mL (<200)
== END 2024-06-05 10:52 | disposition home or self-care (01) ==
PROVIDERS: PCP Nurse Practitioner Adult Health; Visit Provider Nurse Practitioner Adult Health
DX: Z79.899 Other long term (current) drug therapy (principal)
CPT/HCPCS: 80299

== ENCOUNTER 2024-06-10 10:55 | Outpatient (CLI) | payer MEDICARE, MEDICAID, SELFPAY ==
[2024-06-10 11:14] LABS: Basophils Absolute Auto 0.1 K/mm3 (0.0-0.1); Basophils Percent Auto 0.5 % (0.2-1.2); Eosinophils Absolute Auto 0.2 K/mm3 (0-0.3); Eosinophils Percent Auto 1.8 % (0-4.4); Hematocrit 45.3 % (42.0-52.0); Hemoglobin 15.6 g/dL (14.0-18.0); Immature Granulocyte Absolute 0.05 K/mm3 (0.00-0.031); Immature Granulocyte Percent A 0.4 % (0-0.5); Lymphocytes Absolute Auto 3.44 K/mm3 (0.9-3.2); Lymphocytes Percent Auto 25.7 % (18.3-44.2); Mean Corpuscular HGB Conc 34.4 g/dl (32-36); Mean Corpuscular Hemoglobin 30.2 pg (26-34); Mean Corpuscular Volume 87.6 fl (80-100); Mean Platelet Volume 9.2 fl (7.4-10.4); Monocytes Percent Auto 7.8 % (2.6-8.5); Neutrophils Absolute Auto 8.6 K/mm3 (1.3-6.7); Neutrophils Percent Auto 63.8 % (45.5-73.1); Platelet Count Result 345 k/mm3 (150-375); Red Blood Count 5.17 M/mm3 (4.6-6.20); Red Cell Distribution Width 12.9 % (11.5-14.5); White Blood Count 13.4 K/mm3 (4.5-10.0)
[2024-06-10 11:15] LABS: Blood Urea Nitrogen 6 mg/dL (8-26); Carbon Dioxide 29 mmol/L (22-30); Chloride 93 mmol/L (98-109); Estimated Glomerular Filt Rate > 60; Glucose 90 mg/dL (70-105); Ionized Calcium (POC) 1.15 mmol/L (1.11-1.31); Potassium 4.1 mmol/L (3.5-4.9); Sodium 132 mmol/L (138-146)
== END 2024-06-10 10:56 | disposition home or self-care (01) ==
LOC: ANHLAB 10:58
PROVIDERS: Visit Provider Internal Medicine Hematology & Oncology
DX: D72.829 Elevated white blood cell count, unspecified (principal)
CPT/HCPCS: 36415; 80047; 85025

== ENCOUNTER 2024-06-11 09:47 | Outpatient (CLI) | payer MEDICARE, MEDICAID, SELFPAY ==
[2024-06-11 19:25] LABS: Cholesterol 153 mg/dL (0-200); HDL Direct 38 mg/dL; Triglycerides 187 mg/dL (<150)
[2024-06-11 19:35] LABS: LDL Cholesterol Direct 73 mg/dL
[2024-06-11 22:24] LABS: Vitamin D 25 Hydroxy 51.7 ng/mL
== END 2024-06-11 09:48 | disposition home or self-care (01) ==
PROVIDERS: PCP Nurse Practitioner Adult Health; Visit Provider Nurse Practitioner Adult Health
DX: E03.9 Hypothyroidism, unspecified (principal); E78.5 Hyperlipidemia, unspecified; R79.89 Other specified abnormal findings of blood chemistry; Z79.899 Other long term (current) drug therapy
CPT/HCPCS: 36415; 80061; 82306; 84443

== ENCOUNTER 2024-12-24 08:53 | Outpatient (CLI) | payer MEDICARE, MEDICAID, SELFPAY ==
--- OUTSIDE RECORDS SUMMARY | 2024-12-24 09:07 | XMS_ITS | Clinical Summary ---
Author Organization [facility] Address [address] [place] [address] Phone Care Team Providers Care Nozzle And Sleeve Worker Name Role Phone Timothy Jefferson MD Primary Care Provider [phone] Abhay Esteban MD Unavailable Allergies No known active allergies Medications amoxicillin (AMOXIL) 875 MG Tablet TAKE 1 TABLET BY MOUTH EVERY 12 HOURS 0 9 Active gabapentin (NEURONTIN) 300 MG Capsule TAKE 1 CAPSULE BY MOUTH THREE TIMES DAILY 1 9 Active D3-50 11114 units Capsule TAKE 1 TABLET BY MOUTH ONCE A WEEK FOR 8 WEEKS THEN 1 TAB ONCE A MONTH 4 9 Active lisinopril-hydro CHLOROthiazide (PRINZIDE, ZESTORETIC) 20-25 MG Tablet TAKE 1 TABLET BY MOUTH ONCE DAILY 5 9 Active azithromycin (ZITHROMAX) 250 MG TabletIndication s:URTI (acute upper respiratory infection) 2 tab(s) daily for 1 day, then 1 tab(s) daily for days 2-5. 6 Tab 9 Active Additional Information Patient not taking.Reported on 10/14/2021 folic acid (FOLVITE) 1 MG Tablet TAKE 1 TABLET BY MOUTH ONCE DAILY 0 9 Active hydroxychloroqui ne (PLAQUENIL) 200 MG Tablet TAKE 2 TABLETS BY MOUTH ONCE DAILY 3 9 Active methotrexate 2.5 MG Tablet TAKE 5 TABLETS BY MOUTH ONCE A WEEK 1 9 Active traMADol (ULTRAM) 50 MG Tablet TAKE 1 TABLET BY MOUTH EVERY 6 HOURS NEEDED FOR PAIN 0 Active carvedilol (COREG) 12.5 MG Tablet 0 Active losartan (COZAAR) 50 MG Tablet 0 Active ergocalciferol (VITAMIN D) 27242 UNIT Capsule 7 Active meloxicam (MOBIC) 7.5 MG Tablet TAKE 1 TABLET BY MOUTH ONCE DAILY 0 Active terbinafine (LamISIL) 250 MG Tablet Take 250 mg by mouth 2 times daily. Active albuterol 108 (90 Base) MCG/ACT Aerosol Solution INHALE 2 PUFFS BY MOUTH EVERY 4 HOURS NEEDED FOR WHEEZING 9 g 2 Active Additional Information Patient not taking.Reported on 01/11/2022 Active Problems Problem Noted Date Diagnosed Date Nodule of middle lobe of right lung 08/27/2020 Cough 05/05/2020 Essential (primary) hypertension 05/05/2020 Pulmonary HTN 05/05/2020 Major depressive disorder, r ecurrent episode, moderate with anxious distress 05/02/2019 Alcohol dependence, daily use 02/23/2019 Depression 02/23/2019 Neutrophilia 02/19/2019 Current smoker 02/19/2019 Family History Medical History Relation Name Comments Heart Attack Father Relation Name Status Comments Father Mother Alive Social History Tobacco Use Types Packs/Day Years Used Date Smoking Tobacco: Every Day Cigarettes Smokeless Tobacco: Never Tobacco Cessation:Ready to Q uit: Yes; Counseling Given: No Comments:has cut back to 1/2 pack a day Alcohol Use Standard Drinks/Week Comments Yes 0 (1 standard drink = 0.6 oz pur e alcohol) Sexually Active Control Partners Comments Not Currently Sex and Gender Information Value Date Recorded Sex Assigned at Not on file Legal Sex Male 9:10 PM CDT Gender Identity Not on file Sexual Orientation Not on file Occupation Industry Job Start Date Job End Date unemployed Not on file Not on file Not on file Last Filed Vital Signs Vital Sign Reading Time Taken Comments Blood Pressure 120/70 01/11/2022 11:11 AM CDT Pulse 70 01/11/2022 11:11 AM CDT Temperature 36.5 C (97.7 F) 01/11/2022 11:11 AM CDT Respiratory Rate 16 01/11/2022 11:1 1 AM CDT Oxygen Saturation 95% 01/11/2022 11: 11 AM CDT Inhaled Oxygen Concentration - - Weight 110.4 kg (243 lb 6.4 oz) 022 11:11 AM CDT Height 175.3 cm (5' 9) 01/11/2022 11:1 1 AM CDT Body Mass Index 35.94 01/11/2022 11:11 AM CDT Plan of Treatment Health Maintenance Due Date Last Done Comments Hepatitis C Virus (HCV) Screening 1961 TdaP Immunization 1961 Zoster Immunization (1 of 2) 1980 Colonoscopy 2006 Colorectal Cancer Screening 2006 Cologuard 2011 Immunochemical Fecal Occult Blood 2011 Respiratory Syncytial Virus (RSV) Immunization (Adult) (1 - Risk 60-74 years 1-dose series) 2021 Influenza Immunization (#1) 2024 04/22/2021, 0 04/07/2020 SARS-COV-2 Immunization ( season) 2024 11/02/2021, 06/29/2021, 11/17/2020, Additional history exists Pneumococcal Immunization (50+ years) Completed 11/02/2021 Pneumococcal Immunization Combined Discontinued 11/02/2021 Hepatitis B Immunization Aged Out No longer eligible based on patient's age to complete this topic Meningococcal Immunization (ACWY) Aged Out No longer eligible based on patient's age to complete this topic Rotavirus Immunization Aged Out No lo nger eligible based on patient's age to complete this topic Insurance [facility] Care Teams Nozzle And Sleeve Worker Relationship Specialty Start Date End Date Timothy Jefferson MD [address] [place] [address] PCP - General Family Medicine 04/13/21 Abhay Esteban MD [address] [place] [id number] Consulting Physician Pulmonary Disease 10/14/21
--- OUTSIDE RECORDS SUMMARY | 2024-12-24 09:07 | XMS_ITS | Encounter Summary ---
Author Organization [facility] Address [address] [place] [address] Phone Care Team Providers Care Senior Accounts Payable Specialist Name Role Phone Bay Bennett DO Primary Care Provider [phone] Timothy Jefferson MD Primary Care Provider [phone] Abhay Esteban MD Unavailable Reason for Visit * Reason Comments Medication Refill Encounter Details Date Type Department Care Team (Late st Contact Info) Description 12/18/2020 Refill [facility] [address] [place] [address] Abhay Esteban MD [address] [place] [address] Medication Refill Social History Tobacco Use Types Packs/Day Years Used Date Smoking Tobacco: Every Day Cigarettes Smokeless Tobacco: Never Alcohol Use Standard Drinks/Week Comments Yes 0 (1 standard drink = 0.6 oz pur e alcohol) Sex and Gender Information Value Date Recorded Sex Assigned at Not on file Legal Sex Male 9:10 PM CDT Gender Identity Not on file Sexual Orientation Not on file Occupation Industry Job Start Date Job End Date unemployed Not on file Not on file Not on file COVID-19 Exposure Response Date Recorded In the last month, have you been in contact with someone who was confirmed or suspected to have Coronavirus / COVID-19? No / Unsure 11/26/2020 1:59 PM CDT documented as of this encounter Plan of Treatment Not on file documented as of this encounter Visit Diagnoses Not on filedocumented in this encounter Care Teams Senior Accounts Payable Specialist Relationship Specialty Start Date End Date Bay Bennett DO [address] [place] [address] PCP - General Family Medicine 02/19/19 04/12/21 Timothy Jefferson MD [address] [place] [id number] PCP - General Family Medicine 04/13/21 Abahy Esteban MD [address] [place] [address] Consulting Physician Pulmonary Disease 10/14/21 documented as of this encounter
--- OUTSIDE RECORDS SUMMARY | 2024-12-24 09:07 | XMS_ITS | Clinical Summary ---
Author Organization [facility] Address [address] [facility] [place] [address] Care Team Providers Care Lithographic Printing Machinist Name Role Phone Bay Bennett DO Primary Care Provider [phone] Source Comments [facility],non-owned Affiliates and Associated Physician Practices is amultiple site organization consisting of ambulatory clinics and hospital sitesin [place], [place], [place] and [place]. This disclosure is being madepursuant to the Care Everywhere program and may not contain all information available regarding this patient. Last updated 18.[employer] [facility] Medications * Be aware that medications may not be up to date on this document. Alwaysverify current medications with the patient. hydrOXYzine hcl (ATARAX) 25 MG tablet 60 Each 2 08/30/2017 Active fenofibrate (LOFIBRA) 160 MG tablet 06/30/2017 Active lisinopril (PRINIVIL; ZESTRIL) 10 MG tablet 07/25/2017 Active sertraline (ZOLOFT) 100 MG tablet 07/25/2017 Active sulfamethoxazole -trimethoprim (BACTRIM DS; SEPTRA DS) 800-160 MG tablet 07/25/2017 Active cephalexin (KEFLEX) 500 MG capsule 40 capsule 0 06/30/2017 Active ZINC OXIDE, TOPICAL, (HUGGIES DIAPER RASH) 10 % 50 g 2 06/05/2017 Active tacrolimus (PROTOPIC) 0.1 % ointment 60 g 11 06/05/2017 Active Disposable Gloves (COTTON GLOVES MEDIUM) MISC 4 Each 11 06/05/2017 Active mupirocin (BACTROBAN) 2 % ointment 22 g 2 04/11/2017 Active ketoconazole (NIZORAL) 2 % shampoo 120 mL 11 04/10/2017 Active clobetasol (TEMOVATE) 0.05 % solution 50 mL 11 04/10/2017 Active Fenofibrate 50 MG 50 mg. 12/14/2016 Active gabapentin (NEURONTIN) 300 MG capsule 300 mg. 12/14/2016 Active loratadine (CLARITIN) 10 MG tablet 12/23/2016 Active clobetasol propionate (CLOBEX) 0.05 % shampoo 4 oz 2 04/03/2017 Active vitamin D, ergocalciferol, (DRISDOL) 72790 UNITS capsule 12/14/2016 Activ e metoprolol tartrate (LOPRESSOR) 100 MG tablet 12/23/2016 Active diclofenac sodium EC (VOLTAREN) 25 MG tablet 25 mg. 12/14/2016 Active clobetasol (TEMOVATE) 0.05 % ointment 45 g 2 04/03/2017 Active betamethasone valerate (VALISONE) 0.1 % ointment 01/23/2017 Active Active Problems Problem Noted Date Diagnosed Date Tobacco use 09/21/2017 Other specified deforming dorsopathies, site uns pecified 09/21/2017 Radiculopathy of lumbar region 08/29/2017 Streptococcal infection 06/06/2017 Rash and other nonspecific skin eruption 017 Psoriasis vulgaris 04/03/2017 Family History Medical History Relation Name Comments Cancer - Skin, Melanoma Neg Hx Cancer - Skin, Non Melanoma Neg Hx Social History Tobacco Use Types Packs/Day Years Used Date Smoking Tobacco: Every Day Cigarettes Smokeless Tobacco: Never Sex and Gender Information Value Date Recorded Sex Assigned at Not on file Legal Sex Male 5:18 PM COLLETER Gender Identity Not on file Sexual Orientation Not on file Last Filed Vital Signs Vital Sign Reading Time Taken Comments Blood Pressure 162/103 09/19/2017 1:39 PM COLLETER Pulse 60 09/19/2017 1:39 PM COLLETER Temperature 36.6 C (97.9 F) 09/19/2017 1:39 PM COLLETER Respiratory Rate 20 09/19/2017 1:39 PM COLLETER Oxygen Saturation 98% 09/19/2017 1:39 PM COLLETER Inhaled Oxygen Concentration - - Weight 89.8 kg (198 lb) 09/19/2017 1:39 PM COLLETER Height 175.3 cm (5' 9) 09/19/2017 1:39 PM COLLETER Body Mass Index 29.24 09/19/2017 1:39 PM COLLETER Plan of Treatment Health Maintenance Due Date Last Done Comments COLOGUARD (AGES 45-75) - COL ON CA SCREENING 1961 COLON MONITORING 1961 COLONOSCOPY - COLON CA SCREENING 1961 CT COLONOGRAPHY - COLON CA SCREENING 1961 Colorectal Cancer Screening 1961 FIT - COLON CA SCREENING 1961 FLEX SIG - COLON CA SCREENING 1961 LIPID TESTING 1961 HIV SCREENING 1976 HEPATITIS C SCREENING 03/24/1979 DTAP/TDAP/TD VACCINES (1 - Tdap) 1980 PNEUMOCOCCAL VACCINE 50+ (1 of 2 - PCV) 1980 ZOSTER VACCINE (1 of 2) 2011 COVID-19 VACCINE (1 - 2023-2 5 season) 2024 DEPRESSION SCREENING 07/24/2024 INFLUENZA VACCINE (Season Ended) 2025 Respiratory Syncytial Virus (RSV) Vaccine Pt: or over 60 yrs (1 - 1-dose 75+ series) 2036 HEPATITIS B VACCINE Aged Out No longe r eligible based on patient's age to complete this topic HIB VACCINE Aged Out No longer eligi ble based on patient's age to complete this topic HPV VACCINE Aged Out No longer eligi ble based on patient's age to complete this topic MENINGOCOCCAL (Group B) VACC INE SHARED DECISION-MAKING Aged Out No longer eligibl e based on patient's age to complete this topic MENINGOCOCCAL GROUPS A/C/Y/W VACCINE Aged Out No longer eligible b ased on patient's age to complete this topic Insurance [facility] MANAGED MEDICARE ADV [facility] MEDICARE ADV Care Teams Lithographic Printing Machinist Relationship Specialty Start Date End Date Bay Bennett DO [address] [address] PCP - General Family Medicine 09/11/19
--- OUTSIDE RECORDS SUMMARY | 2024-12-24 09:07 | XMS_ITS | Encounter Summary ---
Author Organization [facility] Address [address] [place] [address] Phone Care Team Providers Care Street Sweeper Name Role Phone Timothy Jefferson MD Primary Care Provider [phone] Encounter Details Date Type Department Care Team (Latest Contact Info) Description 12/07/2023 Orders Only [facility] Scanning, Provider Social History Tobacco Use Types Packs/Day Years Used Date Smoking Tobacco: Every Day Cigarettes 1.5 46.4 Started: 1977 Smokeless Tobacco: Never Comments:1.5 PACK A DAY Alcohol Use Standard Drinks/Week Comments Not Currently 0 (1 standard drink = 0.6 oz pur e alcohol) OASIS D0700: Social Isolation Answer Da te Recorded Frequency of experiencing loneliness or isolatio n Never 09/23/2022 OASIS A1250: Transportation Answer Date Recorded Lack of Transportation (Medical) No 09/23/2022 Lack of Transportation (Non-Medical) No 09/23/2022 Patient Unable or Declines to Respond No 09/23/2022 OASIS B1300: Health Literacy Answer Claudio e Recorded Frequency of needing help to read materials from doctor or pharmacy Often 09/23/2022 AUDIT-C Answer Date Recorded Q1: How often do you have a drink containing alcohol? 4 or more times a week 08/24/2022 Q2: How many drinks containi ng alcohol do you have on a typical day when you are drinking? 5 or 6 Q3: How often do you have si x or more drinks on one occasion? Daily or almost daily 08/24/2022 Personal Safety Answer Date Recorded Getting School Help Needed Not on file 09/22 Sex and Gender Information Value Date Recorded Sex Assigned at Not on file Legal Sex Male 4:11 AM READERS' ADVISORY SERVICE LIBRARIAN Gender Identity Not on file Sexual Orientation Not on file Occupation Industry Job Start Date Job End Date UNEMPLOYED Not on file Not on file Not on file On disability Not on file Not on file Not on file documented as of this encounter Plan of Treatment Not on file documented as of this encounter Procedures Procedure Name Priority Date/Time Associated Diagnosis Comments SCAN - LABS 12/07/2023 documented in this encounter Results * SCAN - LABS (12/07/2023) us Provider Scanning Final Result documented in this encounter Visit Diagnoses Not on filedocumented in this encounter Care Teams Street Sweeper Relationship Specialty Start Date End Date Timothy Jefferson MD PCP - General Family Practice 12/14/21 documented as of this encounter
--- OUTSIDE RECORDS SUMMARY | 2024-12-24 09:07 | XMS_ITS | Referral Summary ---
Author Organization [facility] Address [address] [place] [address] Care Team Providers Care Pharmacy Retail Support Specialist Name Role Phone Timothy Jefferson MD Primary Care Provider [phone] [phone] Allergies No known active allergies Medications cholecalciferol (VITAMIN D-3) 50,000 unit capsule Take 50,000 Units by mouth once a week 4 03/30/2019 Active carvediloL (COREG) 12.5 mg tablet Take 12.5 mg by mouth every 12 (twelve) hours 01/27/2020 Active rOPINIRole (REQUIP) 0.25 mg tablet Take 0.25 mg by mouth 2 (two) times a day 12/09/2021 Active celecoxib (CeleBREX) 200 mg capsule Take 200 mg by mouth daily 08/15/2022 Active atorvastatin (LIPITOR) 40 mg tablet Take 1 tablet (40 mg total) by mouth nightly 30 tablet 1 08/27/2022 Active oxyCODONE-aceta minophen (PERCOCET) 5-325 mg per tabletIndicatio ns:Pain Take 1 tablet by mouth every 6 (six) hours as needed for pain 12 tablet 08/27/2022 Active predniSONE (DELTASONE) 20 mg tabletIndicatio ns:rash Take 20 mg by mouth 2 (two) times a day. Take 2 tablets by mouth daily for 5 days, then take 1 tablet by mouth daily for 5 days. Indications: rash Active Active Problems Problem Noted Date Diagnosed Date Hyponatremia 08/25/2022 Class 2 severe obesity due t o excess calories with serious comorbidity and body mass index (BMI) of 38.0 to 38.9 in adult 08/25/2022 Cerebrovascular accident (CVA), unspecified mech anism 08/24/2022 Spinal stenosis of lumbar re gion without neurogenic claudication 12/14/2021 URTI (acute upper respiratory infection) 021 Nodule of middle lobe of right lung 08/27/2020 Cough 05/05/2020 Essential (primary) hypertension 05/05/2020 Pulmonary HTN ([facility]) 05/05/2020 Major depressive disorder, r ecurrent episode, moderate with anxious distress 05/02/2019 Syncope and collapse 04/08/2019 Alcohol dependence, daily use ([facility]) 02/24/20 19 Depression 02/23/2019 Neutrophilia 02/19/2019 Cigarette smoker 12/04/2018 Exogenous obesity 12/04/2018 Other spondylosis with radiculopathy, lumbar reg ion 12/04/2018 Other specified deforming dorsopathies, site uns pecified 09/21/2017 Tobacco use 09/21/2017 Radiculopathy of lumbar region 08/29/2017 Streptococcal infection 06/06/2017 Psoriasis vulgaris 04/03/2017 Rash and other nonspecific skin eruption 017 Cervical radiculopathy at C5 Immunizations Immunization Administration Dates Next Due Influenza, Quadrivalent, Spl it, Preservative Free, Intramuscular 04/07/2020 Influenza, Unspecified 03/24/2021 Pfizer SARS-CoV-2 Monovalent Vaccination (12+ Yrs) PURPLE 11/17/2020,10/24/2020 Social History Tobacco Use Types Packs/Day Years Used Date Smoking Tobacco: Every Day Cigarettes 1.5 46.4 Started: 1977 Smokeless Tobacco: Never Tobacco Cessation:Ready to Q uit: Not Asked; Counseling Given: Yes Comments:1.5 PACK A DAY Alcohol Use Standard [...] daily 08/24/2022 Personal Safety Answer Date Recorded Have you ever been in or are you currently in a harmful physical or emotional relationship or is someone making you feel afraid or unsafe? Denies 2024 Sex and Gender Information Value Date Recorded Sex Assigned at Not on file Legal Sex Male 4:11 AM GUIDE Gender Identity Not on file Sexual Orientation Not on file Occupation Industry Job Start Date Job End Date UNEMPLOYED Not on file Not on file Not on file On disability Not on file Not on file Not on file Last Filed Vital Signs Vital Sign Reading Time Taken Comments Blood Pressure 156/76 2024 7:15 PM CDT Pulse 67 2024 7:15 PM CDT Temperature 36.5 C (97.7 F) 2024 3:47 PM CDT Respiratory Rate 15 2024 7:15 PM CDT Oxygen Saturation 92% 2024 7:15 PM CDT Inhaled Oxygen Concentration - - Weight 118.4 kg (261 lb) 07/22/2024 3:40 PM GUIDE Height 175.3 cm (5' 9) 07/22/2024 3:40 PM GUIDE Body Mass Index 38.54 07/22/2024 3:40 PM GUIDE Plan of Treatment Not on file Procedures Procedure Name Priority Date/Time Associated Diagnosis Comments CT LUNG CANCER SCREENING Schedule Routine, Read Routine (OP Routine) 07/22/2024 3:42 PM GUIDE Personal history of nicotine dependence COLONOSCOPY REPORT 11/22/2016 from Last 3 Months or Most Recently Relevant to Health Maintenance Results * CT Lung Cancer Screening (07/22/2024 3:42 PM GUIDE) Anatomical Region Laterality Modality Chest N/A Computed Tomogra phy 07/27/2024 3:51 PM GUIDE Narrative 07/27/2024 4:02 PM GUIDE EXAM DESCRIPTION: CT LUNG CANCER SCREENING REASON FOR STUDY: Screening CT of the chest in a current smoker with a 21 pack year smoking history. Additional history: None. TECHNIQUE: Low dose CT scan of the chest was performed without intravenous contrast using helical scanning technique. The exam extends from the lung apices through the lung bases. Automatic exposure control was used as a dose optimization technique. NOTE: This study was performed for the specific purposes of lung cancer screening and is not an alternative to diagnostic chest CT. RADIATION DOSE: CT dose index volume (CTDIvol) = 2.11 mGy COMPARISON: None FINDINGS: SMOKING RELATED LUNG DISEASE: Minimal emphysema LUNG NODULES: No suspicious nodules were seen. A 4 mm perifissural nodule is seen in the right middle lobe. CORONARY ARTERY CALCIFICATION: Severe OTHER: No adenopathy was seen. No airway nodule was seen. The upper abdomen is unremarkable. No suspicious bone lesions were seen. Degenerative change is seen in the lower half of the thoracic spine. IMPRESSION: Severe coronary artery calcification. Coronary artery evaluation is recommended. No evidence of lung cancer. Lung-RADS category 2S: Benign appearance or behavior. Finding other than a pulmonary nodule which is potentially clinically significant. Recommendation: Low dose Screening CT of chest in 12 months. THIS IS AN ELECTRONICALLY VERIFIED FINAL REPORT 07/27/2024 4:02 PM - Electronically signed by Augusto Pathak M.D. SHELBY: SHELBY Report ID: [id number] Reading Location: [place] [address] Procedure Note Calixto Pathak MD - 07/27/2024 EXAM DESCRIPTION: CT LUNG CANCER SCREENING REASON FOR STUDY: Screening CT of the chest in a current smoker with a21 pack year smoking history. Additional history: None. TECHNIQUE: Low dose CT scan of the chest was performed without intravenous contrast using helical scanning technique. The exam extends from the lung apices through the lung bases. Automatic exposure control was used as adose optimization technique. NOTE: This study was performed for the specific purposes of lung cancer screening and is not an alternative to diagnostic chest CT. RADIATION DOSE: CT dose index volume (CTDIvol) = 2.11 mGy COMPARISON: None FINDINGS: SMOKING RELATED LUNG DISEASE: Minimal emphysema LUNG NODULES: No suspicious nodules were seen. A 4 mm perifissuralnodule is seen in the right middle lobe. CORONARY ARTERY CALCIFICATION: Severe OTHER: No adenopathy was seen. No airway nodule was seen. The upper abdomen is unremarkable. No suspicious bone lesions were seen.Degenerative change is seen in the lower half of the thoracic spine. IMPRESSION: Severe coronary artery calcification. Coronary artery evaluation is recommended. No evidence of lung cancer. Lung-RADS category 2S: Benign appearance or behavior. Finding other thana pulmonary nodule which is potentially clinically significant. Recommendation: Low dose Screening CT of chest in 12 months. THIS IS AN ELECTRONICALLY VERIFIED FINAL REPORT 07/27/2024 4:02 PM - Electronically signed by Augusto Pathak M.D. SHELBY: SHELBY Report ID: [id number] Reading Location: [place] [address] Maria Elena Ricks NP IM CT PROCEDURES Final Result * COLONOSCOPY REPORT (11/22/2016) Anatomical Region Laterality Modality Other Narrative 11/22/2016 Ordered by an unspecified provider. Historical Provider GI PROCEDURE ORDERABLES F inal Result from Last 3 Months or Most Recently Relevant to Health Maintenance Insurance [employer] CHOICE MEDICARE PPO HUMANA MEDICARE HMO HUMANA MEDICARE HMO IDPA [facility] MEDICARE O Advance Directives For more information, please contact: [phone] * Full Code (Latest Code Status on File) Date Activated Date Inactivated Comments 08/25/2022 12:03 AM 08/27/2022 4:56 PM Care Teams Pharmacy Retail Support Specialist Relationship Specialty Start Date End Date Timothy Jefferson MD PCP - General Family Practice 12/14/21
--- OUTSIDE RECORDS SUMMARY | 2024-12-24 09:07 | XMS_ITS | Clinical Summary ---
Author Organization [facility] Address [address] [place] [address] Care Team Providers Care Block Inspector Name Role Phone Timothy Jefferson MD Primary Care Provider [phone] [phone] Allergies No known active allergies Medications atorvastatin (LIPITOR) 40 mg tablet Take 40 mg by mouth daily at bedtime. 3 Active celecoxib (CeleBREX) 200 mg capsule Take 200 mg by mouth daily. 3 Active predniSONE (DELTASONE) 20 mg tablet Take 20 mg by mouth 2 times daily. Active rOPINIRole (REQUIP) 0.25 mg tablet Take 0.25 mg by mouth 2 times daily. 2 Active carvediloL (COREG) 25 mg tablet Take 25 mg by mouth 2 times daily with meals. Active cholecalciferol , Vitamin D3, 125 mcg (5,000 unit) Capsule Take 5,000 Units by mouth daily. Active clobetasoL (TEMOVATE) 0.05 % Solution Apply to affected area 2 times daily. Active hydroCHLOROthia zide 12.5 mg tablet Take 12.5 mg by mouth daily. Active HYDROcodone-brian taminophen (NORCO) 5-325 mg tablet Take 1 Tablet by mouth every 4 hours as needed for Pain, Moderate. Active levothyroxine 25 mcg tablet Take 25 mcg by mouth daily in the morning. Active nicotine (NICODERM CQ) 7 mg/24 hr patch Apply 1 Patch to skin as directed every 24 hours. Active nystatin (MYCOSTATIN) 100,000 unit/gram Cream Apply to affected area 2 times daily. Active tamsulosin (FLOMAX) 0.4 mg capsule Take 0.4 mg by mouth daily. Active aspirin (ECOTRIN EC) 81 mg Tablet, Delayed Release (E.C.) Take 81 mg by mouth daily. Active Skyrizi 150 mg/mL Pen Injector Inject 150 mg by subcutaneous injection. 4 Active oxyCODONE-aceta minophen (PERCOCET) 5-325 mg tablet Take 1 Tablet by mouth. 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, lumbar reg ion 12/04/2018 Family History Medical History Relation Name Comments Heart Disease Daughter Kidney Disease Daughter Heart Disease Father Unknown Father Dementia Mother Heart Disease Son Kidney Disease Son Relation Name Status Comments Daughter Alive Father Mother Alive Son Social History Tobacco Use Types Packs/Day Years Used Date Smoking Tobacco: Every Day Cigarettes 1.4 9 Started: 12/21/2015 Alcohol Use Standard Drinks/Week Comments Yes 0 (1 standard drink = 0.6 oz pur e alcohol) daily Sex and Gender Information Value Date Recorded Sex Assigned at Not on file Legal Sex Male 4:30 PM CDT Gender Identity Not on file Sexual Orientation Not on file Occupation Industry Job Start Date Job End Date Not on file Not on file Not on file Not on file Last Filed Vital Signs Vital Sign Reading Time Taken Comments Blood Pressure 91/65 06/10/2024 11:16 AM CONSTRUCTION PROJECT ENGINEER Pulse 66 06/10/2024 11:16 AM CONSTRUCTION PROJECT ENGINEER Temperature 36.6 C (97.8 F) 06/10/2024 11:16 AM CONSTRUCTION PROJECT ENGINEER Respiratory Rate 18 06/10/2024 11:16 AM CONSTRUCTION PROJECT ENGINEER Oxygen Saturation 94% 06/10/2024 11:16 AM CONSTRUCTION PROJECT ENGINEER Inhaled Oxygen Concentration - - Weight 117.9 kg (260 lb) 06/10/2024 11:16 AM CONSTRUCTION PROJECT ENGINEER Height 175.3 cm (5' 9) 08/09/2023 10:19 AM CONSTRUCTION PROJECT ENGINEER Body Mass Index 38.4 08/09/2023 10:19 AM CONSTRUCTION PROJECT ENGINEER Plan of Treatment Upcoming Encounters Date Type Department Care Team (Late st Contact Info) Description 06/10/2025 11:00 AM CONSTRUCTION PROJECT ENGINEER Office Visit [facility] [place] [address] [place] [address] Will Alcaraz MD [address] [facility] [address] [place] [address] Health Maintenance Due Date Last Done Comments Pre-Diabetes and Diabetes Screening 1961 DTAP/TDAP/TD VACCINES (1 - Tdap) 1980 COLORECTAL SCREENING 2006 Colorectal Cancer Screening 2006 FIT-DNA Q 3 years 2006 FIT/FOBT Q 1 year 2006 Flex Sig/CT Colonography Q 5 years 2006 ZOSTER VACCINE (1 of 2) 2011 INFLUENZA VACCINE (#1) 2024 04/07/2020 COVID-19 Vaccine ( - 2023- season) 2024, 10/24/2020 RSV VACCINE (60+ or ) (1 - 1-dose 75+ series) 2036 Insurance MEDICAID [place] Care Teams Block Inspector Relationship Specialty Start Date End Date Timothy Jefferson MD [address] [place] [address] PCP - General Family Practice 08/09/23
--- OUTSIDE RECORDS SUMMARY | 2024-12-24 09:07 | XMS_ITS | Encounter Summary ---
Author Organization [facility] Address [address] [place] [address] Care Team Providers Care Clinical Dental Technician Name Role Phone Timothy Jefferson MD Primary Care Provider [phone] [phone] Encounter Details Date Type Department Care Team (Late st Contact Info) Description 08/10/2022 Telephone [facility] [address] [place] [id number] Destiny Sandra, RT Social History Tobacco Use Types Packs/Day Years Used Date Smoking Tobacco: Every Day Cigarettes 1.5 46.4 Started: 1977 Smokeless Tobacco: Never Comments:1.5 PACK A DAY Alcohol Use Standard Drinks/Week Comments Not Currently 0 (1 standard drink = 0.6 oz pur e alcohol) AUDIT-C Answer Date Recorded Q1: How often do you have a drink containing alc ohol? 2-4 times a month 07/12/2022 Q2: How many drinks containi ng alcohol do you have on a typical day when you are drinking? 1 or 2 07/12/2022 Q3: How often do you have si x or more drinks on one occasion? Never 07/12/2022 Sex and Gender Information Value Date Recorded Sex Assigned at Not on file Legal Sex Male 4:11 AM TRUCKSMITH Gender Identity Not on file Sexual Orientation [...] on filedocumented in this encounter Care Teams Clinical Dental Technician Relationship Specialty Start Date End Date Timothy Jefferson MD PCP - General Family Practice 12/14/21 documented as of this encounter
--- OUTSIDE RECORDS SUMMARY | 2024-12-24 09:08 | XMS_ITS | Clinical Summary ---
Author Organization [facility] Address [address] [place] [address] Care Team Providers Care Assembly Line Upholsterer Name Role Phone Timothy Jefferson MD Primary Care Provider [phone] [phone] Allergies No known active allergies Medications cholecalciferol [...] 05/05/2020 Essential (primary) hypertension 05/05/2020 Pulmonary HTN ([facility]) 05/05/2020 Major depressive disorder, r ecurrent episode, moderate with anxious distress 05/02/2019 Syncope and collapse 04/08/2019 Alcohol dependence, daily use ([facility]) 02/24/20 19 Depression 02/23/2019 Neutrophilia 02/19/2019 Cigarette [...] SARS-CoV-2 Monovalent Vaccination (12+ Yrs) PURPLE 11/17/2020,10/24/2020 Surgical History Surgery Date Site/Laterality Comments SHOULDER ARTHROSCOPY Left Arthroscopy shoulder Medical History Medical History Date Comments Hypertension Hypertension Seizure disorder (HCC) Seizure d isorder Hx Other Medical Back Pain; Comm ents: [facility] 03/03/2016 - Rheumatoid arthritis (HCC) Rheum atoid arthritis; Comments: [facility] 03/03/2016 - Hx Other Medical Neuropathy; Com ments: [facility] 03/03/2016 - Hypercholesteremia Psoriasis Anemia Family History Medical History Relation Name Comments Heart disease Father Hypertension Mother Relation Name Status Comments Father Mother Social History Tobacco Use Types Packs/Day Years [...] on file Legal Sex Male 4:11 AM MANAGER INTENSIVE CARE UNIT Gender Identity Not on file Sexual Orientation Not on file Occupation Industry Job Start Date Job End Date UNEMPLOYED Not on file Not on file Not on file On disability Not on file Not on file Not on file Obstetrics History Last Filed Vital Signs Vital Sign Reading Time Taken Comments Blood Pressure 156/76 2024 7:15 PM CDT Pulse 67 2024 7:15 PM CDT Temperature 36.5 C (97.7 F) 2024 3:47 PM CDT Respiratory Rate 15 2024 7:15 PM CDT Oxygen Saturation 92% 2024 7:15 PM CDT Inhaled Oxygen Concentration - - Weight 118.4 kg (261 lb) 07/22/2024 3:40 PM MANAGER INTENSIVE CARE UNIT Height 175.3 cm (5' 9) 07/22/2024 3:40 PM MANAGER INTENSIVE CARE UNIT Body Mass Index 38.54 07/22/2024 3:40 PM MANAGER INTENSIVE CARE UNIT Plan of Treatment Health Maintenance Due Date Last Done Comments Depression Screening 1961 Hepatitis C Screening 1961 Prostate Cancer Screening-PSA 1961 DTaP/Tdap/Td Vaccine (1 - Tdap) 1972 Hepatitis B Screening 1979 Regular Well Visit/Exam 18-64 1979 Pneumococcal vaccine <65 (1 of 2 - PCV) 1980 Zoster Vaccine (1 of 2) 1980 Covid-19 Vaccine (3 - Pfizer risk series) 12/15/2020 11/17/2020, 10/24/2020 Influenza Vaccine (Season Ended) 2025 03/24/20 21, 04/07/2020 Lung Cancer Screening 07/23/2025 07/22/2024 Colon Cancer Screening-Colonoscopy 11/22/20262016 Colon Cancer Screening-CT Colonography Discontinued Colon Cancer Screening-DNA Stool Discontinued 11/23/19 17 Colon Cancer Screening-FIT Discontinued 11/22/2016 Colon Cancer Screening-Sigmoidoscopy Discontinued 08/2016 Procedures Procedure Name Priority Date/Time Associated Diagnosis Comments CT LUNG CANCER SCREENING Schedule Routine, Read Routine (OP Routine) 07/22/2024 3:42 PM MANAGER INTENSIVE CARE UNIT Personal history of nicotine dependence COLONOSCOPY REPORT 11/22/2016 from Last 3 Months or Most Recently Relevant to Health Maintenance Results * CT Lung Cancer Screening (07/22/2024 3:42 PM MANAGER INTENSIVE CARE UNIT) Anatomical Region Laterality Modality Chest N/A Computed Tomogra phy 07/27/2024 3:51 PM MANAGER INTENSIVE CARE UNIT Narrative 07/27/2024 4:02 PM MANAGER INTENSIVE CARE UNIT EXAM DESCRIPTION: CT LUNG CANCER SCREENING REASON [...] Augusto Pathak M.D. SHELBY: SHELBY Report ID: [id number] Reading Location: [place] [address] Procedure Note Calixto Pathak MD - 07/27/2024 [...] Augusto Pathak M.D. SHELBY: SHELBY Report ID: [id number] Reading Location: [id number] Maria Elena Ramireznatalie PILOT MANAGER IMG CT PROCEDURES Final Result * COLONOSCOPY REPORT (11/22/2016) Anatomical Region Laterality Modality Other Narrative 11/22/2016 Ordered by an unspecified provider. Historical Provider GI PROCEDURE ORDERABLES F inal Result from Last 3 Months or Most Recently Relevant to Health Maintenance Insurance HUMANA MEDICARE HMO [facility] [place] [address] [facility] CHOICE MEDICARE PPO Advance Directives For more information, please contact: [phone] * Full Code (Latest Code Status on File) Date Activated Date Inactivated Comments 08/25/2022 12:03 AM 08/27/2022 4:56 PM Care Teams Assembly Line Upholsterer Relationship Specialty Start Date End Date Timothy Jefferson MD PCP - General Family Practice 5/24/22
[2024-12-24 21:35] LABS: Basophils Absolute Auto 0.1 K/mm3 (0.0-0.1); Basophils Percent Auto 0.6 % (0.2-1.2); Eosinophils Absolute Auto 0.2 K/mm3 (0-0.3); Eosinophils Percent Auto 1.7 % (0-4.4); Hematocrit 49.7 % (42.0-52.0); Hemoglobin 15.5 g/dL (14.0-18.0); Immature Granulocyte Absolute 0.05 K/mm3 (0.00-0.031); Immature Granulocyte Percent A 0.4 % (0-0.5); Lymphocytes Percent Auto 25.4 % (18.3-44.2); Mean Corpuscular HGB Conc 31.2 g/dl (32-36); Mean Corpuscular Hemoglobin 29.3 pg (26-34); Mean Platelet Volume 9.6 fl (7.4-10.4); Monocytes Absolute Auto 0.8 K/mm3 (0.1-0.6); Monocytes Percent Auto 6.5 % (2.6-8.5); Neutrophils Absolute Auto 8.3 K/mm3 (1.3-6.7); Neutrophils Percent Auto 65.4 % (45.5-73.1); Platelet Count Result 379 k/mm3 (150-375); Red Blood Count 5.29 M/mm3 (4.6-6.20); Red Cell Distribution Width 13.9 % (11.5-14.5); White Blood Count 12.6 K/mm3 (4.5-10.0)
[2024-12-24 22:44] LABS: Alanine Aminotransferase 24 U/L (6-50); Albumin Level 4.2 g/dL (3.5-5.1); Alkaline Phosphatase 93 U/L (38-126); Anion Gap 7 mmol/L (4-12); Aspartate Amino Transferase 70 U/L (17-59); Bilirubin,Total 0.4 mg/dL (0.2-1.3); Blood Urea Nitrogen 7 mg/dL (9-20); Calcium 9.8 mg/dL (8.4-10.2); Carbon Dioxide 32 mmol/L (22-30); Chloride 98 mmol/L (98-107); Cholesterol 142 mg/dL (0-200); Estimated Glomerular Filt Rate > 60; Glucose 80 mg/dL (65-110); HDL Direct 42 mg/dL; Magnesium 2.4 mg/dL (1.6-2.3); Potassium 4.9 mmol/L (3.4-5.0); Sodium 137 mmol/L (137-145); Total Protein 7.4 g/dL (6.3-8.2); Triglycerides 124 mg/dL (<150)
[2024-12-24 22:56] LABS: Vitamin D 25 Hydroxy 53.7 ng/mL
[2024-12-24 23:15] LABS: LDL Cholesterol Direct 67 mg/dL; Prostate Specific Antigen 0.5 ng/mL (< OR = 4.0)
[2024-12-30 13:19] LABS: NIL 0.14 IU/mL; Quantiferon TB Plus, 1T NEGATIVE (NEGATIVE); TB1-NIL 0.05 IU/mL; TB2-NIL 0.04 IU/mL
== END 2024-12-24 08:54 | disposition home or self-care (01) ==
PROVIDERS: PCP Nurse Practitioner Adult Health; Visit Provider Nurse Practitioner Adult Health
DX: R79.89 Other specified abnormal findings of blood chemistry (principal); Z79.899 Other long term (current) drug therapy; I10 Essential (primary) hypertension; Z12.5 Encounter for screening for malignant neoplasm of prostate; E03.9 Hypothyroidism, unspecified; Z11.1 Encounter for screening for respiratory tuberculosis
CPT/HCPCS: 36415; 80053; 80061; 82306; 83735; 84153; 84443; 85025; 86480; G0103

== ENCOUNTER 2025-01-20 10:07 | Outpatient (CLI) | payer MEDICARE, MEDICAID, SELFPAY ==
--- NOTE | ~2025-01-20 | XR_ITS ---
AP and lateral views of the bilateral hips Clinical history: Pain Findings: No acute fracture or dislocation is seen. Osseous alignment is anatomic. Bilateral hip and SI joint spaces are preserved. Soft tissues are unremarkable. Impression: No significant abnormality is seen. Reviewed, dictated and finalized at [facility]. Impression: No significant abnormality is seen.
--- NOTE | ~2025-01-20 | XR_ITS ---
Lumbosacral Spine: AP and lateral views Clinical History: Pain Findings: There is levoscoliosis of the lumbar spine. There is multilevel moderate to advanced degene rative disc narrowing throughout the lumbar spine. There is advanced facet arthropathy from L3 throug h S1. There is moderate facet arthropathy at the upper lumbar spine. The sacroiliac joints are normal ly outlined. Impression: Moderate to advanced degenerative spondylosis, as above. Levoscoliosis. Reviewed, dictated and finalized at location M. Impression: Moderate to advanced degenerative spondylosis, as above. Levoscoliosis.
== END 2025-01-20 10:08 | disposition home or self-care (01) ==
LOC: ANHBWCIMG 10:09
PROVIDERS: PCP Nurse Practitioner Adult Health; Visit Provider Nurse Practitioner Adult Health
DX: M47.816 Spondylosis without myelopathy or radiculopathy, lumbar region (principal); M41.85 Other forms of scoliosis, thoracolumbar region; M25.561 Pain in right knee; M25.562 Pain in left knee
CPT/HCPCS: 72100; 73521; 73562

== ENCOUNTER 2025-06-30 14:57 | Outpatient (CLI) | payer MEDICARE, MEDICAID, SELFPAY ==
--- NOTE | ~2025-06-30 | XR_ITS ---
EXAMINATION: XR shoulder RT min 2V DATE: 06/30/2025 15:09 INDICATION: Injury TECHNIQUE: Right shoulder x-rays were obtained. COMPARISON: 11/16/2021 FINDINGS: Moderately advanced degenerative changes about the glenohumeral joint and at the AC joint with no fracture lucency, subluxation or dislocation identified. IMPRESSION: 1. No displaced fracture lucency. For persisting or worsening shoulder pain, correlation with right shoulder MRI may provide additional beneficial information. Reviewed, dictated and finalized at location A. L FILLER IMPRESSION: 1. No displaced fracture lucency. For persisting or worsening shoulder pain, co rrelation with right shoulder MRI may provide additional beneficial information .
[2025-06-30 18:50] LABS: Hematocrit 46.5 % (42.0-52.0); Hemoglobin 15.6 g/dL (14.0-18.0); Immature Granulocyte Percent A 0.4 % (0-0.5); Lymphocytes Absolute Auto 3.67 K/mm3 (0.9-3.2); Mean Corpuscular HGB Conc 33.5 g/dl (32-36); Mean Corpuscular Hemoglobin 30.4 pg (26-34); Mean Corpuscular Volume 90.5 fl (80-100); Nucleated Red Blood Cells Absolute Auto 0.000 K/mm3 (0.0-0.012); Nucleated Red Blood Cells Perc 0.0 % (0.0-0.2); Platelet Count Result 400 k/mm3 (150-375); Red Blood Count 5.14 M/mm3 (4.6-6.20); White Blood Count 13.3 K/mm3 (4.5-10.0)
[2025-06-30 19:46] LABS: Alanine Aminotransferase 20 U/L (6-50); Albumin Level 4.2 g/dL (3.5-5.1); Alkaline Phosphatase 95 U/L (38-126); Anion Gap 4 mmol/L (4-12); Aspartate Amino Transferase 58 U/L (17-59); Bilirubin,Total 0.5 mg/dL (0.2-1.3); Blood Urea Nitrogen 9 mg/dL (9-20); Calcium 9.5 mg/dL (8.4-10.2); Carbon Dioxide 32 mmol/L (22-30); Chloride 95 mmol/L (98-107); Cholesterol 165 mg/dL (0-200); Estimated Glomerular Filt Rate > 60; Glucose 86 mg/dL (65-110); HDL Direct 44 mg/dL; Potassium 4.8 mmol/L (3.4-5.0); Sodium 131 mmol/L (137-145); Total Protein 7.5 g/dL (6.3-8.2); Triglycerides 207 mg/dL (<150)
[2025-06-30 20:23] LABS: Thyroid Stimulating Hormone 3.480 uIU/mL (0.465-4.680)
== END 2025-06-30 14:58 | disposition home or self-care (01) ==
LOC: ANHBWCLAB 14:58
PROVIDERS: PCP Nurse Practitioner Adult Health; Visit Provider Nurse Practitioner Adult Health
DX: M25.511 Pain in right shoulder (principal); E78.5 Hyperlipidemia, unspecified; R79.89 Other specified abnormal findings of blood chemistry; E03.9 Hypothyroidism, unspecified
CPT/HCPCS: 36415; 73030; 80053; 80061; 84443; 85025